=== PATIENT | male | born 1955 | race Caucasian/White ===

== ENCOUNTER 2024-04-11 09:17 | Emergency (ER) | payer MEDICARE, OTHER, SELFPAY ==
[2024-04-11 09:25] VITALS: BP 155/79
--- NOTE | 2024-04-11 10:52 | ED.GENMED ---
History of Present Illness
General
Chief Complaint: Fall
Source: patient
Exam Limitations: none
Time Seen by Provider: 04/11/24 10:09
Nursing documentation reviewed up to this point in time: agreed with
History of Present Illness
History of Present Illness:
Patient is a 68-year-old male who presents to the ER complaint of bilateral knee pain. Patient reports he is moving and was walking down the steps with a box and missed the last step and twisted both of his knees. He reports the right knee hurts
slightly more than the left knee. He is able to bear weight feels a little off because of the discomfort. He has had prior knee surgery to his right knee many years ago.
Review of Systems
Review of Systems
Allergies reviewed?: Yes
All Other Systems: ROS reviewed and negative except as documented in HPI and ROS
Constitutional: Reports no symptoms; Denies fever, fatigue or chills
Musculoskeletal: Reports other ( b/l knee pain )
Skin: Reports no symptoms
Neurological: Reports no symptoms
Psychiatric: Reports no symptoms
Phy Exam
General Physical Exam
General Presentation: no apparent distress
General age: appears stated age
General Skin: warm and dry
General Habitus: normal
General Mental: alert
General Hydration: appears well hydrated
Neurological Exam
Neurological Exam: alert and oriented x3
Musculoskeletal Exam
Musculoskeletal Exam: other (Bilateral lower extremities are strong pulses right knee is mildly swollen no obvious swelling to left knee able to flex and extend both knees no ligament laxity mild discomfort with flexion bilaterally but no pain with
medial lateral stress bilaterally, no calf tenderness b/l )
Skin Exam
Skin Exam: normal color and warm/dry
Psychiatric Exam
Psychiatric Exam: normal mood/affect
Course
Orders/Labs/Results
Orders:
Orders
04/11/24 10:44
Knee, Left 4 or More Views [CR Knee - Left 4 Or More View*] Urgent
Comment:
Reason For Exam: trauma
Knee, Right 4 or More Views [CR Knee- Right 4 Or More View*] Urgent
Comment:
Reason For Exam: trauma
04/11/24 12:56
Knee Immobilizer Right-Treatme ONCE
04/11/24 13:03
Ibuprofen [Motrin] 600 mg PO NOW STA
Vital Signs
Initial and Last Documented VS:
Initial Vital Signs
Temp Pulse Resp BP Pulse Ox
99.0 F 74 18 155/79 98
04/11/24 09:25 04/11/24 09:25 04/11/24 09:25 04/11/24 09:25 04/11/24 09:25
Last Documented Vital Signs
Temp Pulse Resp BP Pulse Ox
98.5 F 82 20 145/71 99
04/11/24 10:59 04/11/24 10:59 04/11/24 10:59 04/11/24 10:59 04/11/24 10:59
*Radiology
Radiology exam reviewed: radiology read reviewed
*Pulse Oximetry
Patient hypoxic: no
*Critical Care Note
Total Time (30-74mins, 75-104mins- exclusive of procedures): Not Applicable
ED Attending Note
-
Portions of this chart may have been created with voice recognition software.� Occasional wrong word or��sound alike� substitutions may have occurred due to the inherent limitations of voice recognition software.
Discharge Plan
Departure
Patient Disposition: Home (Routine Discharge)
Date of Disposition: 04/11/24
Time of Disposition: 13:02
Patient with high blood pressure during this ER visit?: Yes
Condition: Fair
Covid-19: Not Applicable
Discharge Problem:
Knee sprain
Instructions: Knee Sprain ED, BLOOD PRESSURE
Prescriptions:
No Action
No Current Medications
0
Referrals:
Mt Peters MD [Family Provider] -
Samson Austin MD [Active] -
Activity Restrictions/Additional Instructions:
As discussed ice affected areas for the next 24 hours 20 minutes at a time several times a day. Ibuprofen 600 mg every 8 hours with food. May alternate with Tylenol. Wear immobilizer for support you may remove at night while sleeping but keep
elevated as much as possible. Call orthopedics today for an appointment in the next several days for reevaluation of your bilateral knee pain.
Interventions
Interventions:
*Risk Screen - Suicide Last Done: 04/11/24 09:25
*General Assessment Last Done: 04/11/24 09:25
*Neglect/Abuse Screening Last Done: 04/11/24 09:25
ED- Fall Risk Assessment Last Done: 04/11/24 10:59
*ED COVID-19 Vaccine History Last Done: 04/11/24 09:25
ED-Musculoskeletal Assessment Last Done: 04/11/24 10:59
ED- Neurological Assessment Last Done: 04/11/24 10:59
ED-Skin Assessment Last Done: 04/11/24 10:59
Discharge Date and Time
Print Language: INDONESIAN
[2024-04-11 10:59] VITALS: BP 145/71; BMI 28.1
--- NOTE | 2024-04-11 11:09 | EDRN ---
the pt is sitting in chair in ED in ED [address], no s/s of distress, xray ordered, the pt denies needing anything at this time, will continue to monitor the pt closely
[2024-04-11] MEDS: MOTRIN 600 MG PO (13:16)
[2024-04-11 13:22] VITALS: BP 140/70
== END 2024-04-11 13:23 | disposition home or self-care (01) ==
LOC: EMR 09:17
PROVIDERS: EMERGENCY PHYSICIAN Emergency Medicine; FAMILY PHYSICIAN Family Medicine
DX: S83.91XA Sprain of unspecified site of right knee, initial encounter (principal); M25.562 Pain in left knee; X50.1XXA Overexertion from prolonged static or awkward postures, initial encounter; R03.0 Elevated blood-pressure reading, without diagnosis of hypertension
CPT/HCPCS: 99283; 29505; 73564